=== PATIENT | female | born 2000 | race Caucasian/White ===

== ENCOUNTER 2019-02-20 16:11 | Emergency (ER) | payer BC ==
[~2019-02-20] VITALS: Ht 160 cm; Wt 88.6 kg
[2019-02-20 16:26] VITALS: TEMP 98.7
[2019-02-20 16:38] LABS: COLLECTION METHOD CLEAN CATCH
[2019-02-20 16:54] LABS: MUCOUS Present /lpf; PH 5 (5-8); URINE APPEARANCE Cloudy; URINE BACTERIA Rare /hpf; URINE BILIRUBIN Negative (NEGATIVE); URINE BLOOD 3+ (NEGATIVE); URINE COLOR Yellow; URINE GLUCOSE Negative (NEGATIVE); URINE KETONE 1+ (NEGATIVE); URINE LEUKOCYTE ESTERASE Trace (NEGATIVE); URINE NITRATE Negative (NEGATIVE); URINE PROTEIN(semi-quant) Negative (NEGATIVE); URINE RBC >50 /hpf; URINE UROBILINOGEN Negative (NEGATIVE)
[2019-02-20 17:47] LABS: BASO % 0.4 % (0.0-2.0); EOS % 0.4 % (0-4.0); GRAN # 8.5 (1.4-6.5); GRAN % 76.8 % (42.2-75.2); HEMATOCRIT 43.9 % (35.0-45.0); HEMOGLOBIN 14.4 g/dl (12.0-15.0); LYMPH # 1.8 (1.2-3.4); MEAN CELL VOLUME 89 fl (80.0-95.0); MEAN CORPUSCULAR HEMOGLOBIN 29 pg (26.0-32.0); MEAN CORPUSCULAR HGB CONC 33 g/dl (33.0-37.0); MEAN PLATELET VOLUME 9.6 fl (7.4-10.4); MONO # 0.7 (0.1-0.6); MONO % 6.1 % (1.7-9.3); PLATELET COUNT 341 K/mm3 (130-400); RED BLOOD COUNT 4.96 M/mm3 (4.10-5.30)
[2019-02-20 17:54] LABS: ALBUMIN 4.5 gm/dL (3.5-5.0); BILIRUBIN,TOTAL 0.3 mg/dL (0.0-1.0); CALCIUM 9.5 mg/dL (8.4-10.2); CREATININE, serum 0.67 (0.52-1.25); POTASSIUM 3.9 mmol/L (3.4-5.0); TOTAL PROTEIN 7.7 gm/dL (6.4-8.2)
[2019-02-20] MEDS ORDERED: NORCO 325 MG-51 TAB PO (20:20)
[2019-02-20] MEDS ORDERED: ZOFRAN ODT4 MG PO (20:20)
[2019-02-20 20:30] VITALS: BP 123/78; PULSE 83
== END 2019-02-20 20:30 | disposition home or self-care (01) ==
LOC: COL.ER 16:11
PROVIDERS: Family Medicine; Nurse Practitioner
DX: N20.0 Calculus of kidney (principal)
CPT/HCPCS: J1200; J1885; J2405; J2930; J7030; Q9967

== ENCOUNTER 2019-10-15 15:11 | Emergency (ER) | payer BC ==
[~2019-10-15] VITALS: Ht 157.5 cm; Wt 90.9 kg
[~2019-10-15 15:11] MED LIST: NORCO 325 MG-51 TAB PO; ZOFRAN ODT4 MG PO
[2019-10-15 15:23] VITALS: TEMP 99.4
[2019-10-15 15:56] LABS: COLLECTION METHOD CLEAN CATCH
[2019-10-15 15:58] LABS: BASO % 0.4 % (0.0-2.0); EOS % 0.5 % (0-4.0); GRAN # 5.3 (1.4-6.5); GRAN % 63.8 % (42.2-75.2); HEMATOCRIT 44.5 % (37.0-47.0); HEMOGLOBIN 14.5 g/dl (12.5-16.0); LYMPH # 2.3 (1.2-3.4); LYMPH % 27.3 % (20.0-51.0); MEAN CELL VOLUME 86 fl (80.0-100.0); MEAN CORPUSCULAR HEMOGLOBIN 28 pg (27.0-31.0); MEAN CORPUSCULAR HGB CONC 33 g/dl (33.0-37.0); MEAN PLATELET VOLUME 9.5 fl (7.4-10.4); MONO # 0.6 (0.1-0.6); MONO % 7.6 % (1.7-9.3); PLATELET COUNT 342 K/mm3 (130-400); RED BLOOD COUNT 5.17 M/mm3 (4.10-5.30); REDCELL DISTRIBUTION WIDTH-CV 12.1 % (11.5-14.5)
[2019-10-15 16:09] LABS: MUCOUS Present /lpf; PH 7 (5-8); URINE APPEARANCE Cloudy; URINE BACTERIA Occasional /hpf; URINE BILIRUBIN Negative (NEGATIVE); URINE BLOOD 3+ (NEGATIVE); URINE COLOR Yellow; URINE GLUCOSE Negative (NEGATIVE); URINE KETONE Negative (NEGATIVE); URINE LEUKOCYTE ESTERASE Negative (NEGATIVE); URINE NITRATE Negative (NEGATIVE); URINE PROTEIN(semi-quant) 1+ (NEGATIVE); URINE RBC >50 /hpf; URINE UROBILINOGEN Negative (NEGATIVE)
[2019-10-15 16:12] LABS: ALBUMIN 4.5 gm/dL (3.5-5.0); BILIRUBIN,TOTAL 0.4 mg/dL (0.0-1.0); C-REACTIVE PROTEIN 0.7 mg/dL (0.0-0.9); CALCIUM 9.5 mg/dL (8.4-10.2); CREATININE, serum 0.79 (0.52-1.25); POTASSIUM 4.2 mmol/L (3.4-5.0); TOTAL PROTEIN 7.8 gm/dL (6.4-8.2)
[2019-10-15] MEDS ORDERED: OSCAL 500 TAB500 MG PO (17:02)
[2019-10-15] MEDS ORDERED: MASON NATURAL2000 IU PO (17:03)
[2019-10-15] MEDS ORDERED: VITAMIN C500 MG PO (17:03)
[2019-10-15] MEDS ORDERED: UROCIT-K 1010 MEQ PO (17:04)
[2019-10-15] MEDS ORDERED: DEPO-PROVE150 MG/1 M IM (17:05)
[2019-10-15] MEDS ORDERED: PRILOSEC 20MG20 MG PO (17:08)
[2019-10-15] MEDS ORDERED: MACROBID 1100 MG/CAP PO (17:09)
[2019-10-15] MEDS ORDERED: MAXALT10 MG (17:10)
[2019-10-15] MEDS ORDERED: EMGALITY120 MG/1 M SQ (17:11)
[2019-10-15] MEDS ORDERED: NORCO 325 MG-51 TAB PO (17:13)
[2019-10-15] MEDS ORDERED: ZOFRAN 4MG T4 MG/TAB PO (17:13)
[2019-10-15 17:43] VITALS: BP 106/66; PULSE 90
== END 2019-10-15 17:45 | disposition home or self-care (01) ==
LOC: COL.ER 15:11
PROVIDERS: Emergency Medicine
DX: N20.1 Calculus of ureter (principal); K21.9 Gastro-esophageal reflux disease without esophagitis; Z87.442 Personal history of urinary calculi
CPT/HCPCS: J1200; J2405; J3010; J7030; Q9967

== ENCOUNTER → 2020-03-12 | Outpatient (CLI) | payer BC ==
[~2020-03-12] MED LIST changes: +DEPO-PROVE150 MG/1 M IM; +EMGALITY120 MG/1 M SQ; +MACROBID 1100 MG/CAP PO; +MASON NATURAL2000 IU PO; +MAXALT10 MG; +OSCAL 500 TAB500 MG PO; +PRILOSEC 20MG20 MG PO; +UROCIT-K 1010 MEQ PO; +VITAMIN C500 MG PO; +ZOFRAN 4MG T4 MG/TAB PO
== END ==
LOC: COL.CARD 03-10 13:00
DX: G43.909 Migraine, unspecified, not intractable, without status migrainosus (principal)

== ENCOUNTER 2021-09-07 08:43 | Emergency (ER) | payer BC ==
[~2021-09-07] VITALS: Ht 157.5 cm; Wt 95.5 kg
[2021-09-07 08:49] VITALS: TEMP 98.2
[2021-09-07 08:59] LABS: COLLECTION METHOD CLEAN CATCH
[2021-09-07 09:05] LABS: BASO % 0.6 % (0.0-2.0); EOS % 0.4 % (0.0-4.0); GRAN # 4.8 K/mm3 (1.4-6.5); GRAN % 67.9 % (42.2-75.2); HEMATOCRIT 43.2 % (37.0-47.0); HEMOGLOBIN 14.4 g/dl (12.5-16.0); LYMPH # 1.8 K/mm3 (1.2-3.4); LYMPH % 24.8 % (20.0-51.0); MEAN CELL VOLUME 86 fl (80.0-100.0); MEAN CORPUSCULAR HEMOGLOBIN 29 pg (27-31); MEAN CORPUSCULAR HGB CONC 33 g/dl (33.0-37.0); MEAN PLATELET VOLUME 9.8 fl (7.4-10.4); MONO # 0.4 K/mm3 (0.1-0.6); PLATELET COUNT 292 K/mm3 (130-400); RED BLOOD COUNT 5.03 M/mm3 (4.10-5.30); REDCELL DISTRIBUTION WIDTH-CV 12.1 % (11.5-14.5)
[2021-09-07 09:12] LABS: MUCOUS Present (NOT PRESENT); PH 8 (5-8); URINE APPEARANCE Cloudy (CLEAR/HAZY); URINE BACTERIA Occasional /hpf (NONE SEEN); URINE BILIRUBIN Negative (NEGATIVE); URINE BLOOD 1+ (NEGATIVE); URINE COLOR Yellow (YELLOW); URINE GLUCOSE Negative (NEGATIVE); URINE KETONE Negative (NEGATIVE); URINE LEUKOCYTE ESTERASE Negative (NEGATIVE); URINE NITRATE Negative (NEGATIVE); URINE PROTEIN(semi-quant) Negative (NEGATIVE); URINE UROBILINOGEN Negative (NEGATIVE)
[2021-09-07 09:23] LABS: BILIRUBIN,TOTAL 0.4 mg/dL (0.2-1.2); CALCIUM 9.3 mg/dL (8.4-10.2); CREATININE, serum 0.78 mg/dL (0.57-1.11)
[2021-09-07] MEDS ORDERED: NORCO 325 MG-51 TAB PO (10:28)
[2021-09-07] MEDS ORDERED: ZOFRAN ODT4 MG PO (10:30)
[2021-09-07 10:43] VITALS: PULSE 88
== END 2021-09-07 10:44 | disposition home or self-care (01) ==
LOC: COL.ER 08:43
PROVIDERS: Emergency Medicine
DX: N13.2 Hydronephrosis with renal and ureteral calculous obstruction (principal); Z87.442 Personal history of urinary calculi; Z32.02 Encounter for pregnancy test, result negative; Z88.5 Allergy status to narcotic agent
CPT/HCPCS: J1885; J2405; J3010; J7120

== ENCOUNTER → 2021-10-03 | Outpatient (CLI) | payer BC | LOC: COL.RAD 07:30 | DX: R10.30 Lower abdominal pain, unspecified (principal); R10.2 Pelvic and perineal pain; K62.89 Other specified diseases of anus and rectum; Z87.442 Personal history of urinary calculi ==